=== PATIENT | female | born 1965 | race Caucasian/White ===

== ENCOUNTER 2016-06-17 11:11 | Observation (INO) | payer OTHER ==
[~2016-06-17] VITALS: Ht 162.6 cm; Wt 101.7 kg
[~2016-06-17 11:11] MED LIST: DIPH25CA5 PO; FLNIN NAE; HYDC25 PO; IBUP-1277 PO; LISI-793 PO; OXYC-643 PO; SERT-234 PO; VARE1PAK15
[2016-06-17] MEDS ORDERED: MoRPHine SULFATE 10 MG/ML CARP/VIAL IV STA (11:23)
[2016-06-17] MEDS ORDERED: ONDANSETRON INJ 2 MG/ML 2 ML VIAL IV STA (11:23)
[2016-06-17] MEDS ORDERED: SODIUM CHLORIDE 0.9% 1000ML 1,000 ML IV STA (11:23)
[2016-06-17] MEDS ORDERED: SERT25TA PO (11:52)
[2016-06-17] MEDS ORDERED: LISI-725 PO (11:52)
[2016-06-17] MEDS ORDERED: CYAN10005 PO (11:52)
[2016-06-17] MEDS ORDERED: SERT-234 PO (11:52)
[2016-06-17] MEDS ORDERED: HYDR12.56 PO (11:52)
[2016-06-17] MEDS ORDERED: FLUT0.15 NAE (11:52)
[2016-06-17] MEDS ORDERED: FOLI1TAB7 PO (11:52)
[2016-06-17] MEDS ORDERED: [UNRECOGNIZED DRUG - OTHER] OPB (11:52)
[2016-06-17] MEDS ORDERED: ERGO500037 PO (11:52)
[2016-06-17] MEDS ORDERED: CETI10TA10 PO (11:52)
[2016-06-17 11:55] LABS: BASO % 0.3 %; BASO ABS # 0.02 K/uL (0-0.2); COMPLETE YES; EOS % 3.6 %; HEMATOCRIT 44.6 % (37-47); IG% 0.3 %; LYMPH % 27.7 %; LYMPH ABS # 1.95 K/uL (1.2-3.4); MEAN CELL VOLUME 99.8 fL (80-100); MEAN CORPUSCULAR HEMOGLOBIN 34.2 pg (25-34); MEAN CORPUSCULAR HGB CONC 34.3 g/dl (32-36); MEAN PLATELET VOLUME 11.1 fL (7.4-10.4); MONO % 6.7 %; NEUT % 61.4 %; PLATELET COUNT 189 K/uL (130-400); RED BLOOD COUNT 4.47 M/uL (4.2-5.4); WHITE BLOOD COUNT 7.03 K/uL (4.8-10.8)
[2016-06-17 12:00] LABS: POINT OF CARE PRO-BNP 17 pg/ml (0-450)
[2016-06-17 12:04] LABS: PARTIAL THROMBOPLASTIN RATIO 1.2; PROTHROMBIN TIME (PATIENT) 10.6 SECONDS (9.0-12.0)
[2016-06-17 12:18] LABS: BUN/CREATININE RATIO 13.6 (10-20); CALCIUM 9.3 mg/dl (8.5-10.1); CREATININE 0.82 mg/dl (0.60-1.20); MAGNESIUM 2.2 mg/dl (1.8-2.4); POTASSIUM 3.8 mmol/L (3.5-5.1)
[2016-06-17 12:21] LABS: CKMB/CK RATIO 1.2 (0-3.0)
--- NOTE | 2016-06-17 12:31 | DIAGNOSTIC IMAGING REPORT ---
PANCREATIC ULTRASOUND CLINICAL HISTORY: Mid back pain. Nausea. Vomiting. COMPARISON STUDY: No previous studies for comparison. FINDINGS: The pancreas appears sonographically normal. The gallbladder appears sonographically normal. There is no ductal dilatation. The common bile duct measures 4 mm. There is no right-sided hydronephrosis. The liver is of slightly increased echogenicity. There is a 2.9 cm hypoechoic focus adjacent to the IVC. This is nonspecific but could represent focal fatty sparing. IMPRESSION: 1. Ultrasonographically normal pancreas and gallbladder 2. No ductal dilatation 3. Suspected hepatic steatosis 4. 29 mm hypoechoic lesion within the liver adjacent to the IVC. While this lesion may simply represent focal fatty sparing, the appearance is nonspecific Electronically signed by: Mani Dorman M.D. 06/17/2016 12:30 PM Dictated Date/Time: 06/17/2016 12:27 PM
[2016-06-17] MEDS ORDERED: OPTIRAY 320 IV PRN (12:45)
[2016-06-17 12:50] LABS: URINE APPEARANCE CLEAR (CLEAR); URINE BILIRUBIN NEG (NEG); URINE COLOR DK YELLOW; URINE NITRITE NEG (NEG); URINE SPECIFIC GRAVITY 1.019 (1.000-1.030); UROBILINOGEN NEG (NEG); ZZUR CULT IF INDIC CLEAN CATCH NO
[2016-06-17 12:53] LABS: MANUAL MICROSCOPIC REQUIRED? NO; REVIEW REQ? NO
--- NOTE | 2016-06-17 13:12 | DIAGNOSTIC IMAGING REPORT ---
CT ANGIOGRAPHY OF THE CHEST, PULMONARY EMBOLUS PROTOCOL CLINICAL HISTORY: Chest pain. Elevated d-dimer. COMPARISON STUDY: Chest radiograph February 19, 2012. TECHNIQUE: Following IV administration of 80 mL of Optiray-320, helical axial images of the chest were obtained utilizing the pulmonary embolus protocol. Maximal intensity projections and sagittal and coronal reformats were viewed on an independent 3D workstation. IV contrast was administered without complication. CT DOSE: 646.73 mGy.cm FINDINGS: No pulmonary emboli are identified. There is no evidence of aortic dissection. The size of the heart is at the upper limits of normal. There are no enlarged thoracic lymph nodes. Central airways are patent. There is no consolidation. Moderate upper lobe predominant emphysema is noted. There is no pneumothorax or pleural effusion. Bony thorax and upper abdomen are unremarkable. IMPRESSION: 1. No pulmonary emboli identified. 2. No acute intrathoracic findings. 3. Moderate upper lobe predominant emphysema. Electronically signed by: Jam Wright M.D. 06/17/2016 1:11 PM Dictated Date/Time: 06/17/2016 1:02 PM
--- NOTE | 2016-06-17 13:21 | DIAGNOSTIC IMAGING REPORT ---
CHEST 2 VIEWS ROUTINE CLINICAL HISTORY: Chest pain, nausea and vomiting. COMPARISON STUDY: Chest radiograph July or 2012. FINDINGS: Lung volumes are normal. Lungs are clear. There is no pneumothorax or pleural effusion. Cardiac size is normal. Mediastinal contours are normal. There is no evidence of pulmonary edema. IMPRESSION: No acute cardiopulmonary findings. Electronically signed by: Jam Wright M.D. 06/17/2016 1:19 PM Dictated Date/Time: 06/17/2016 1:17 PM
--- NOTE | 2016-06-17 14:02 | EMERGENCY ROOM VISIT NOTE ---
History First contact with patient: 11:13 Chief Complaint: CHEST PAIN Stated Complaint: CHEST PAINS, SHOULDER BLADES, NAUSEA, VOMITING Nursing Triage Summary: Patient reports sudden onset of left sided chest pain with radiation to back, initially started in sholder blades with associated nausea/vomiting, diaphoresis. Negative SOB. Patient does have a history daily alcohol use. Patient reports today pain mostly located epigastric lower chest area and wraps around to back. History of Present Illness The patient is a 51 year old female who presents to the Emergency Room with complaints of left-sided chest pain and pain across the upper back under the left shoulder blade. The patient states that the pain started yesterday morning when she woke up. The patient does admit that she drinks a lot of alcohol, usually one bottle of wine per day. She does admit to drinking even more alcohol on Friday night and Friday. The patient also admits to nausea vomiting and diaphoresis with her symptoms. She denies any shortness of breath. The patient currently rates the pain at a 4 out of 10. The patient denies any abdominal pain or diarrhea. The patient denies any history of any cardiac disorder except for hypertension. The patient denies any history of pancreatitis. The patient also states that she was having bilateral leg pain a few months ago and had ultrasounds of her legs which were negative for DVT. The patient is a smoker. She denies any history of clots in her legs or her lungs. She denies any recent travel. She denies any recent surgeries. Review of Systems 10 system review was performed and was negative unless stated otherwise history of present illness. Past Medical/Surgical History Medical Problems: (1) Appendectomy (2) Benign hypertension (3) Bronchitis (4) Pneumonia (5) skin problems (6) stomach problems (7) urinary problems Social History Smoking Status: Current Every Day Smoker Alcohol Use: occasionally Marital Status: Housing Status: lives with family Occupation Status: employed Current/Historical Medications Scheduled Cetirizine Hcl (Zyrtec), 10 MG PO QAM Cyanocobalamin (Vitamin B-12), 1,000 MCG PO DAILY Ergocalciferol (Vitamin D 04226 Unit), 50,000 UNIT PO 2XWK Fluticasone Propionate (Nasal) (Flonase Allergy Relief), 2 SPRAY ALOK DAILY Folic Acid (Folvite), 1 MG PO DAILY Hydrochlorothiazide (Hctz), 12.5 MG PO DAILY Lisinopril (Zestril), 20 MG PO DAILY Sertraline (Zoloft), 100 MG PO DAILY Sertraline (Zoloft), 25 MG PO DAILY Scheduled PRN Olopatadine Hydrochloride (Patanol), 2 DROPS OPB BID PRN for ALLERGIES Allergies Coded Allergies: Phenylpropanolamine (Verified Allergy, Mild, PALPITATIONS, 06/17/16) Penicillins (Verified Allergy, Unknown, UNKNOWN, 06/17/16) Sulfa Drugs (Verified Adverse Reaction, Mild, DIARRHEA, 06/17/16) Amoxicillin (Unverified Adverse Reaction, Unknown, SEVERE DIARRHEA, 06/17/16 ) Clavulanic Acid (Unverified Adverse Reaction, Unknown, SEVERE DIARRHEA, 06/17/16) Physical Exam Vital Signs Date Time Temp Pulse Resp B/P Pulse Ox O2 Delivery O2 Flow Rate FiO2 06/17/16 13:17 148/96 06/17/16 12:40 71 17 99 06/17/16 12:35 174/105 06/17/16 12:02 74 06/17/16 11:19 97 Room Air 06/17/16 11:19 95 Room Air 06/17/16 11:19 36.9 82 20 195/109 97 Room Air 06/17/16 11:18 195/109 Physical Exam GENERAL: 51-year-old white female appears in some distress secondary to her symptoms. MENTAL Status: Alert and oriented 3. The patient is tearful and anxious. MOUTH: Mucosa is moist NECK: Supple, no lymphadenopathy noted. No carotid bruits noted. LUNGS: Clear auscultation without wheezes rales or rhonchi. CARDIAC: Regular rate and rhythm without murmur. Pulses is full and equal throughout. CHEST WALL: Patient has tenderness palpation over the left lower anterior chest wall remainder chest wall is nontender. BACK: No CVA tenderness noted. ABDOMEN: Positive bowel sounds all 4 quadrants. Soft, mild tenderness palpation in the epigastric region otherwise nontender to palpation without organomegaly or masses. EXTREMITIES: No cyanosis or edema noted. Calves are nontender bilaterally. No palpable cords. Negative Homans bilaterally. Medical Decision & Procedures ER Provider Diagnostic Interpretation: CHEST 2 VIEWS ROUTINE CLINICAL HISTORY: Chest pain, nausea and vomiting. COMPARISON STUDY: Chest radiograph July. FINDINGS: Lung volumes are normal. Lungs are clear. There is no pneumothorax or pleural effusion. Cardiac size is normal. Mediastinal contours are normal. There is no evidence of pulmonary edema. IMPRESSION: No acute cardiopulmonary findings. Electronically signed by: Jam Wright M.D. 06/17/2016 1:19 PM PANCREATIC ULTRASOUND CLINICAL HISTORY: Mid back pain. Nausea. Vomiting. COMPARISON STUDY: No previous studies for comparison. FINDINGS: The pancreas appears sonographically normal. The gallbladder appears sonographically normal. There is no ductal dilatation. The common bile duct measures 4 mm. There is no right-sided hydronephrosis. The liver is of slightly increased echogenicity. There is a 2.9 cm hypoechoic focus adjacent to the IVC. This is nonspecific but could represent focal fatty sparing. IMPRESSION: 1. Ultrasonographically normal pancreas and gallbladder 2. No ductal dilatation 3. Suspected hepatic steatosis 4. 29 mm hypoechoic lesion within the liver adjacent to the IVC. While this lesion may simply represent focal fatty sparing, the appearance is nonspecific Electronically signed by: Mani Dorman M.D. 06/17/2016 12:[address] ANGIOGRAPHY OF THE CHEST, PULMONARY EMBOLUS PROTOCOL CLINICAL HISTORY: Chest pain. Elevated d-dimer. COMPARISON STUDY: Chest radiograph February 19, 2012. TECHNIQUE: Following IV administration of 80 mL of Optiray-320, helical axial images of the chest were obtained utilizing the pulmonary embolus protocol. Maximal intensity projections and sagittal and coronal reformats were viewed on an independent 3D workstation. IV contrast was administered without complication. CT DOSE: 646.73 mGy.cm FINDINGS: No pulmonary emboli are identified. There is no evidence of aortic dissection. The size of the heart is at the upper limits of normal. There are no enlarged thoracic lymph nodes. Central airways are patent. There is no consolidation. Moderate upper lobe predominant emphysema is noted. There is no pneumothorax or pleural effusion. Bony thorax and upper abdomen are unremarkable. IMPRESSION: 1. No pulmonary emboli identified. 2. No acute intrathoracic findings. 3. Moderate upper lobe predominant emphysema. Laboratory Results 06/17/16 11:15 Red Blood Count 4.47, Mean Corpuscular Volume 99.8, Mean Corpuscular Hemoglobin 34.2, Mean Corpuscular Hemoglobin Concent 34.3, Mean Platelet Volume 11.1, Neutrophils (%) (Auto) 61.4, Lymphocytes (%) (Auto) 27.7, Monocytes (%) (Auto) 6.7, Eosinophils (%) (Auto) 3.6, Basophils (%) (Auto) 0.3, Neutrophils # (Auto) 4.32, Lymphocytes # (Auto) 1.95, Monocytes # (Auto) 0.47, Eosinophils # (Auto) 0.25, Basophils # (Auto) 0.02 06/17/16 11:15 Test 06/17/16 00:00 06/17/16 11:15 06/17/16 11:36 06/17/16 13:30 Urine Color DK YELLOW Urine Appearance CLEAR (CLEAR) Urine pH 6.0 (4.5-7.5) Urine Specific [place] 1.019 (1.000-1.030) Urine Protein NEG (NEG) Urine Glucose (UA) NEG (NEG) Urine Ketones TRACE (NEG) Urine Occult Blood NEG (NEG) Urine Nitrite NEG (NEG) Urine Bilirubin NEG (NEG) Urine Urobilinogen NEG (NEG) Urine Leukocyte Esterase NEG (NEG) White Blood Count 7.03 K/uL (4.8-10.8) Red Blood Count 4.47 M/uL (4.2-5.4) Hemoglobin 15.3 g/dL (12.0-16.0) Hematocrit 44.6 % (37-47) Mean Corpuscular Volume 99.8 fL (80-100) Mean Corpuscular Hemoglobin 34.2 pg (25-34) Mean Corpuscular Hemoglobin Concent 34.3 g/dl (32-36) Platelet Count 189 K/uL (130-400) Mean Platelet Volume 11.1 fL (7.4-10.4) Neutrophils (%) (Auto) 61.4 % Lymphocytes (%) (Auto) 27.7 % Monocytes (%) (Auto) 6.7 % Eosinophils (%) (Auto) 3.6 % Basophils (%) (Auto) 0.3 % Neutrophils # (Auto) 4.32 K/uL (1.4-6.5) Lymphocytes # (Auto) 1.95 K/uL (1.2-3.4) Monocytes # (Auto) 0.47 K/uL (0.11-0.59) Eosinophils # (Auto) 0.25 K/uL (0-0.5) Basophils # (Auto) 0.02 K/uL (0-0.2) RDW Standard Deviation 47.5 fL (36.4-46.3) RDW Coefficient of Variation 13.0 % (11.5-14.5) Immature Granulocyte % (Auto) 0.3 % Immature Granulocyte # (Auto) 0.02 K/uL (0.00-0.02) Prothrombin Time 10.6 SECONDS (9.0-12.0) Prothromb Time International Ratio 1.0 (0.9-1.1) Activated Partial Thromboplast Time 31.2 SECONDS (21.0-31.0) Partial Thromboplastin Ratio 1.2 Anion Gap 7.0 mmol/L (3-11) Est Creatinine Clear Calc Drug Dose 95.5 ml/min Estimated GFR () 97.4 Estimated GFR (Non- 84.0 BUN/Creatinine Ratio 13.6 (10-20) Calcium Level 9.3 mg/dl (8.5-10.1) Magnesium Level 2.2 mg/dl (1.8-2.4) Total Bilirubin 0.8 mg/dl (0.2-1) Direct Bilirubin 0.2 mg/dl (0-0.2) Aspartate Amino Transf (AST/SGOT) 16 U/L (15-37) Alanine Aminotransferase (ALT/SGPT) 31 U/L (12-78) Alkaline Phosphatase 74 U/L (45-117) Total Creatine Kinase 65 U/L (26-192) Creatine Kinase MB 0.8 ng/ml (0.5-3.6) Creatine Kinase MB Ratio 1.2 (0-3.0) Total Protein 7.5 gm/dl (6.4-8.2) Albumin 4.2 gm/dl (3.4-5.0) Lipase 112 U/L (73-393) Bedside D-Dimer > 450 ng/mlFEU (0-450) BG-Psg-T-Type Natriuretic Peptide 17 pg/ml (0-450) Bedside Troponin I 0.000 ng/ml (0-0.045) Medications Administered Medications (Trade) Dose Ordered Sig/Irina Route Start Time Stop Time Status Last Admin Dose Admin Sodium Chloride (Nss 1000ml) 1,000 ml @ 999 mls/hr Q1H1M STAT IV 06/17/16 11:23 06/17/16 12:23 DC 06/17/16 11:39 999 MLS/HR Ondansetron HCl (Zofran Inj) 4 mg NOW STAT IV 06/17/16 11:23 06/17/16 11:27 DC 06/17/16 11:38 4 MG Morphine Sulfate (MoRPHine SULFATE INJ) 6 mg NOW STAT IV 06/17/16 11:23 06/17/16 11:27 DC 06/17/16 11:39 6 MG ECG Indication: chest pain Rhythm: normal sinus Findings: no acute ischemic change Change: no significant change ED Course The patient was evaluated. The patient's EMR was reviewed as well as her medication list. IV access was obtained. The patient was placed on a monitor and continuous pulse ox. The patient was given morphine 6 mg IV and Zofran 4 mg IV push. CBC and differential, renal profile, LFTs and lipase levels were ordered. Coags were ordered, CK-MB, [id number] d-dimer and troponin were ordered. EKG was ordered and interpreted by myself without any acute findings. Chest x-ray was ordered and interpreted by the radiologist and myself as above. Ultrasound of the pancreas was ordered and interpreted by the radiologist as above. The patient's d-dimer was elevated greater than [address] of the chest for PE was ordered. CT of the chest was negative for PE The patient's white count was normal. CBC and renal profile was unremarkable. Patient's lipase was normal. Troponin was 02. CK-MB was normal. The patient was informed of all findings. Since we did not have any specific finding for her symptoms I felt the patient should be admitted for cardiac rule out. I discussed the patient's case with Dr. Dwyer he was in agreement with treatment plan. Dr. Torre was consulted for admission. Medical Decision Differential diagnosis include acute NM, pulmonary embolus, acute gastritis, peptic ulcer disease, acute pancreatitis, angina Impression Primary Impression: Left sided chest pain Additional Impressions: Nausea and vomiting Alcohol abuse Hypertension Departure Information Dispostion Being Evaluated By Hospitalist Condition GOOD Referrals Vandana Cedeño C.R.N.P. (PCP) Patient Instructions My [facility] Problem Qualifiers
[2016-06-17] MEDS ORDERED: LORAZEPAM 1 MG TAB PO PRN ×2 (14:30)
[2016-06-17] MEDS ORDERED: ALUMINUM/MAGNESIUM/SIMETH (MAALOX MAX) 30 ML UDC PO PRN (14:30)
[2016-06-17] MEDS ORDERED: HydrALAZINE HCL 20 MG/ML VIAL IV. PRN (14:30)
[2016-06-17] MEDS ORDERED: MAGNESIUM HYDROXIDE SUSP 30 ML UDC PO PRN (14:30)
[2016-06-17] MEDS ORDERED: POLYETHYLENE (MIRALAX) 17 GM PACK PO PRN (14:30)
[2016-06-17] MEDS ORDERED: GABAPENTIN 600 MG TAB PO SCH (14:30)
[2016-06-17] MEDS ORDERED: NITROGLYCERIN 0.4 MG SL PER TAB CHARGE SL PRN (14:30)
[2016-06-17] MEDS ORDERED: CHLORDIAZEPOXIDE 25 MG CAP PO SCH (14:30)
[2016-06-17] MEDS ORDERED: ONDANSETRON INJ 2 MG/ML 2 ML VIAL IV PRN (14:30)
[2016-06-17] MEDS ORDERED: SODIUM CHLORIDE 0.9% 1000ML 1,000 ML IV SCH (14:30)
--- NOTE | 2016-06-17 14:54 | History and Physical ---
History & Physical Date & Time of Service: June 17, 2016 at 14:35 Chief Complaint: Chest Pains, Shoulder Blades, Nausea, Vomiting Primary Care Physician: Vandana Cedeño C.R.N.P. History of Present Illness Source: family, clinic records, hospital records Patient is a pleasant 51 y/o female, with PMHx of HTN, anxiety, and tobacco/ alcohol abuse, who presented to the ED because of pain between shoulder blades, radiating to left chest x1 day. On 06/16, patient started to notice discomfort between her shoulder blades. Pain then radiated to left anterior chest. She rated the discomfort a 7/10. Associated symptoms of nausea, vomiting, and diaphoresis. She vomited x1 after eating dinner last evening. She denies any alleviating/aggravating factors. She denies any recent injuries. Currently, she states pain is well controlled; she was giving Morphine 6 mg IV x1 in the ED. Patient admits to drinking a bottle of wine daily. Her last drink was last evening with dinner. She currently denies anxiousness/tremors. She admits to smoking 1 pack of cigarettes per day. She was recently seen by her PCP about 2 weeks ago for bilateral calf discomfort. Bilateral venous US negative for DVT. Patient denies history of DVT/PE or TIA/stroke. She denies any cardiac history. Patient denies any fever, chills, sweats, lightheadedness, dizziness, vision changes, palpitations, edema, SOB, wheezing, cough, abdominal pain, diarrhea, urinary symptoms, melena, numbness/tingling, weakness, muscle/joint pain, anxiety/depression, active bleeding, or new skin discoloration/changes. Past Medical/Surgical History Medical Problems: 1. HTN 2. Anxiety 3. Allergies 4. Tobacco abuse 5. Alcohol abuse Surgical hx: 1. Appendectomy 2. Hysterectomy Family History Mother and father- HTN Grandfather- heart disease Social History Smoking Status: Current Every Day Smoker (1 pack per day ) Alcohol Use: heavy (1 bottle of wine per day ) Marital Status: Housing status: lives with family Occupational Status: employed Immunizations History of Influenza Vaccine: No History of Tetanus Vaccine?: Unknown History of Pneumococcal: No History of Hepatitis B Vaccine: No Multi-Drug Resistant Organisms History of MDRO: No Allergies Coded Allergies: Phenylpropanolamine (Verified Allergy, Mild, PALPITATIONS, 06/17/16) Penicillins (Verified Allergy, Unknown, UNKNOWN, 06/17/16) Sulfa Drugs (Verified Adverse Reaction, Mild, DIARRHEA, 06/17/16) Amoxicillin (Unverified Adverse Reaction, Unknown, SEVERE DIARRHEA, 06/17/16 ) Clavulanic Acid (Unverified Adverse Reaction, Unknown, SEVERE DIARRHEA, 06/17/16) Home Medications Scheduled Cetirizine Hcl (Zyrtec), 10 MG PO QAM Cyanocobalamin (Vitamin B-12), 1,000 MCG PO DAILY Ergocalciferol (Vitamin D 70114 Unit), 50,000 UNIT PO 2XWK Fluticasone Propionate (Nasal) (Flonase Allergy Relief), 2 SPRAY ALOK DAILY Folic Acid (Folvite), 1 MG PO DAILY Hydrochlorothiazide (Hctz), 12.5 MG PO DAILY Lisinopril (Zestril), 20 MG PO DAILY Sertraline (Zoloft), 100 MG PO DAILY Sertraline (Zoloft), 25 MG PO DAILY Scheduled PRN Olopatadine Hydrochloride (Patanol), 2 DROPS OPB BID PRN for ALLERGIES Physical Exam Vital Signs Date Time Temp Pulse Resp B/P Pulse Ox O2 Delivery O2 Flow Rate FiO2 06/17/16 13:17 148/96 06/17/16 12:40 71 17 99 06/17/16 12:35 174/105 06/17/16 12:02 74 06/17/16 11:19 97 Room Air 06/17/16 11:19 95 Room Air 06/17/16 11:19 36.9 82 20 195/109 97 Room Air 06/17/16 11:18 195/109 General Appearance: no apparent distress Head: normocephalic, atraumatic Eyes: normal inspection, PERRL ENT: hearing grossly normal Neck: supple Respiratory/Chest: lungs clear, no respiratory distress, no accessory muscle use Cardiovascular: regular rate, rhythm Abdomen/GI: normal bowel sounds, non tender, soft Back: + pertinent finding (ttp of left shoulder musculoskeletal region ) Extremities/Musculoskelatal: no calf tenderness, no pedal edema Neurologic/Psych: alert, normal mood/affect, oriented x 3 Skin: normal color, warm/dry, no rash Diagnostics Laboratory Results Results Past 24 Hours Test 06/17/16 00:00 06/17/16 11:15 06/17/16 11:36 06/17/16 13:30 Range/Units Urine Color DK YELLOW Urine Appearance CLEAR CLEAR Urine pH 6.0 4.5-7.5 Urine Specific [place] 1.019 1.000-1.030 Urine Protein NEG NEG Urine Glucose (UA) NEG NEG Urine Ketones TRACE NEG Urine Occult Blood NEG NEG Urine Nitrite NEG NEG Urine Bilirubin NEG NEG Urine Urobilinogen NEG NEG Urine Leukocyte Esterase NEG NEG White Blood Count 7.03 4.8-10.8 K/uL Red Blood Count 4.47 4.2-5.4 M/uL Hemoglobin 15.3 12.0-16.0 g/dL Hematocrit 44.6 37-47 % Mean Corpuscular Volume 99.8 80-100 fL Mean Corpuscular Hemoglobin 34.2 25-34 pg Mean Corpuscular Hemoglobin Concent 34.3 32-36 g/dl Platelet Count 189 130-400 K/uL Mean Platelet Volume 11.1 7.4-10.4 fL Neutrophils (%) (Auto) 61.4 % Lymphocytes (%) (Auto) 27.7 % Monocytes (%) (Auto) 6.7 % Eosinophils (%) (Auto) 3.6 % Basophils (%) (Auto) 0.3 % Neutrophils # (Auto) 4.32 1.4-6.5 K/uL Lymphocytes # (Auto) 1.95 1.2-3.4 K/uL Monocytes # (Auto) 0.47 0.11-0.59 K/uL Eosinophils # (Auto) 0.25 0-0.5 K/uL Basophils # (Auto) 0.02 0-0.2 K/uL RDW Standard Deviation 47.5 36.4-46.3 fL RDW Coefficient of Variation 13.0 11.5-14.5 % Immature Granulocyte % (Auto) 0.3 % Immature Granulocyte # (Auto) 0.02 0.00-0.02 K/uL Prothrombin Time 10.6 9.0-12.0 SECONDS Prothromb Time International Ratio 1.0 0.9-1.1 Activated Partial Thromboplast Time 31.2 21.0-31.0 SECONDS Partial Thromboplastin Ratio 1.2 Sodium Level 136 136-145 mmol/L Potassium Level 3.8 3.5-5.1 mmol/L Chloride Level 101 98-107 mmol/L Carbon Dioxide Level 28 21-32 mmol/L Anion Gap 7.0 3-11 mmol/L Blood Urea Nitrogen 11 7-18 mg/dl Creatinine 0.82 0.60-1.20 mg/dl Est Creatinine Clear Calc Drug Dose 95.5 ml/min Estimated GFR () 97.4 Estimated GFR (Non- 84.0 BUN/Creatinine Ratio 13.6 10-20 Random Glucose 101 70-99 mg/dl Calcium Level 9.3 8.5-10.1 mg/dl Magnesium Level 2.2 1.8-2.4 mg/dl Total Bilirubin 0.8 0.2-1 mg/dl Direct Bilirubin 0.2 0-0.2 mg/dl Aspartate Amino Transf (AST/SGOT) 16 15-37 U/L Alanine Aminotransferase (ALT/SGPT) 31 12-78 U/L Alkaline Phosphatase 74 45-117 U/L Total Creatine Kinase 65 26-192 U/L Creatine Kinase MB 0.8 0.5-3.6 ng/ml Creatine Kinase MB Ratio 1.2 0-3.0 Total Protein 7.5 6.4-8.2 gm/dl Albumin 4.2 3.4-5.0 gm/dl Lipase 112 73-393 U/L Bedside D-Dimer > 450 0-450 ng/mlFEU Bedside Troponin I 0.000 0.000 0-0.045 ng/ml YO-Avu-P-Type Natriuretic Peptide 17 0-450 pg/ml Diagnostic Radiology PANCREATIC ULTRASOUND CLINICAL HISTORY: Mid back pain. Nausea. Vomiting. COMPARISON STUDY: No previous studies for comparison. FINDINGS: The pancreas appears sonographically normal. The gallbladder appears sonographically normal. There is no ductal dilatation. The common bile duct measures 4 mm. There is no right-sided hydronephrosis. The liver is of slightly increased echogenicity. There is a 2.9 cm hypoechoic focus adjacent to the IVC. This is nonspecific but could represent focal fatty sparing. IMPRESSION: 1. Ultrasonographically normal pancreas and gallbladder 2. No ductal dilatation 3. Suspected hepatic steatosis 4. 29 mm hypoechoic lesion within the liver adjacent to the IVC. While this lesion may simply represent focal fatty sparing, the appearance is nonspecific Electronically signed by: Mani Dorman M.D. 06/17/2016 12:30 PM Dictated Date/Time: 06/17/2016 12:27 PM The status of this report is Signed. Draft = Not yet reviewed or approved by Radiologist. Signed = Reviewed and approved by Radiologist. CHEST 2 VIEWS ROUTINE CLINICAL HISTORY: Chest pain, nausea and vomiting. COMPARISON STUDY: Chest radiograph July. FINDINGS: Lung volumes are normal. Lungs are clear. There is no pneumothorax or pleural effusion. Cardiac size is normal. Mediastinal contours are normal. There is no evidence of pulmonary edema. IMPRESSION: No acute cardiopulmonary findings. Electronically signed by: Jam Wright M.D. 06/17/2016 1:19 PM Dictated Date/Time: 06/17/2016 1:17 PM The status of this report is Signed. Draft = Not yet reviewed or approved by Radiologist. Signed = Reviewed and approved by Radiologist. CT ANGIOGRAPHY OF THE CHEST, PULMONARY EMBOLUS PROTOCOL CLINICAL HISTORY: Chest pain. Elevated d-dimer. COMPARISON STUDY: Chest radiograph February 19, 2012. TECHNIQUE: Following IV administration of 80 mL of Optiray-320, helical axial images of the chest were obtained utilizing the pulmonary embolus protocol. Maximal intensity projections and sagittal and coronal reformats were viewed on an independent 3D workstation. IV contrast was administered without complication. CT DOSE: 646.73 mGy.cm FINDINGS: No pulmonary emboli are identified. There is no evidence of aortic dissection. The size of the heart is at the upper limits of normal. There are no enlarged thoracic lymph nodes. Central airways are patent. There is no consolidation. Moderate upper lobe predominant emphysema is noted. There is no pneumothorax or pleural effusion. Bony thorax and upper abdomen are unremarkable. IMPRESSION: 1. No pulmonary emboli identified. 2. No acute intrathoracic findings. 3. Moderate upper lobe predominant emphysema. Electronically signed by: Jam Wright M.D. 06/17/2016 1:11 PM Dictated Date/Time: 06/17/2016 1:02 PM The status of this report is Signed. Draft = Not yet reviewed or approved by Radiologist. Signed = Reviewed and approved by Radiologist STEVEN DILLON VARGAS ID:[id number] 17-JUN-2016 11:16:56 [facility] Normal sinus rhythm Left anterior fascicular block Abnormal ECG When compared with ECG of 17-APR-2012 10:48, Left anterior fascicular block is now Present Confirmed by EBER MOFFETT ([id number]) on 06/17/2016 1:32:44 PM 25mm/s 10mm/mV 150Hz 8.0 SP2 12SL 241 LAURA: 9 Referred by: Referred Self Confirmed By: EBER Cole. rate 81 BPM NM interval 158 ms QRS duration 86 ms QT/QTc 366/425 ms P-R-T axes 58 -60 46 -DEC-1964 (51 yr) Female 64in 220lb Room: Loc:15 Dice Spotter:Julian Sullivan ind: Impression Assessment and Plan 51 y/o female, with PMHx of HTN, anxiety, and tobacco/alcohol abuse, who presented to the ED because of pain between shoulder blades, radiating to left chest x1 day Left-sided CP, likely secondary to musculoskeletal issue vs. cardiac: - Admit to tele for cardiac monitoring - Trend cardiac enzymes- initial trop negative - Repeat EKG tomorrow AM and PRN w/ CP - NPO after midnight for stress ECHO tomorrow AM - IV Toradol and Flexeril 5 mg BID for pain management - IV NSS x1 bag - Elevated d-dimer- chest CTA negative for PE HTN: - Continue Lisinopril 20 mg daily and HCTZ 12.5 mg daily - IV 10 mg Hydralazine PRN Anxiety: Continue Zoloft daily Alcohol abuse- 1 bottle of wine per day: Alcohol protocol Tobacco abuse- 1 pack per day: - Nicotine patch - Smoking cessation counselling GI Prophylaxis: Protonix daily, Maalox PRN, IV Zofran PRN, Colace and/or Milk of Mag PRN DVT prophylaxis: Lovenox 40 mg SQ q24 hrs, EVANS and SCDs Code Status: LEVEL I, FULL Level of Care Telemetry Resuscitation Status FULL RESUSCITATION VTE Prophylaxis VTE Risk Assessment Done? Y/N: Yes Risk Level: Moderate Given or contraindicated: Enoxaparin (Lovenox)SQ, T.E.D. Stockings, SCD's
[2016-06-17] MEDS ORDERED: THIAMINE HCL 100 MG TAB PO STA (15:05)
[2016-06-17 16:00] VITALS: O2SAT 97; Ht 162.6 cm; Wt 101.7 kg
[2016-06-17] MEDS ORDERED: IV FLUIDS COMPLETED PRN (16:00)
[2016-06-17 16:43] VITALS: BP 154/96; PULSE 76; TEMP 36.8; O2SAT 96
[2016-06-17] MEDS: KETOROLAC TROMETHAMINE 30 MG/ML VIAL IV PRN ×2 (17:32→23:26)
[2016-06-17] MEDS: NICOTINE 14 MG/24 HR TDSY TD SCH (17:37)
[2016-06-17 17:57] LABS: URINE APPEARANCE CLEAR (CLEAR); URINE BILIRUBIN NEG (NEG); URINE COLOR YELLOW; URINE NITRITE NEG (NEG); URINE SPECIFIC GRAVITY 1.025 (1.000-1.030); UROBILINOGEN NEG (NEG)
[2016-06-17 17:59] LABS: MANUAL MICROSCOPIC REQUIRED? NO; REVIEW REQ? NO
[2016-06-17] MEDS ORDERED: GABAPENTIN 1200MG LOADING DOSE PO SCH (18:00)
[2016-06-17 19:02] VITALS: BP 150/94; PULSE 62; TEMP 36.9; O2SAT 96
[2016-06-17] MEDS ORDERED: ENOXAPARIN 40 MG/0.4 ML SYR SC SCH (21:00)
[2016-06-17] MEDS: CYCLOBENZAPRINE HCL 5 MG TAB PO SCH (21:21)
[2016-06-17] MEDS: GABAPENTIN 600MG Q6H DOSE PO SCH (23:25)
[2016-06-17 23:50] VITALS: BP 125/84; PULSE 67; TEMP 36.6; O2SAT 96
[2016-06-18] VITALS (7 sets, daily range): BP systolic 112–158; BP diastolic 82–95; PULSE 75–83; TEMP 36.5–37.2; O2SAT 95–97
[2016-06-18 06:29] LABS: BLOOD UREA NITROGEN 13 mg/dl (7-18); BUN/CREATININE RATIO 18.7 (10-20); CALCIUM 8.7 mg/dl (8.5-10.1); CARBON DIOXIDE 29 mmol/L (21-32); CHLORIDE 107 mmol/L (98-107); GLUCOSE 92 mg/dl (70-99); POTASSIUM 4.2 mmol/L (3.5-5.1); SODIUM 140 mmol/L (136-145)
[2016-06-18] MEDS: GABAPENTIN 600MG Q6H DOSE PO SCH (07:38)
[2016-06-18] MEDS ORDERED: HYDROCHLOROTHIAZIDE 25 MG TAB PO SCH (09:00)
[2016-06-18] MEDS ORDERED: SERTRALINE HCL 50 MG TAB PO SCH ×2 (09:00→21:00)
[2016-06-18] MEDS ORDERED: PANTOprazole SOD 40 MG TAB PO SCH (09:00)
[2016-06-18] MEDS ORDERED: LISINOPRIL 20 MG TAB PO SCH (09:00)
[2016-06-18] MEDS ORDERED: CETIRIZINE HCL 10 MG TAB PO SCH (09:00)
[2016-06-18] MEDS ORDERED: SERTRALINE HCL 100 MG TAB PO SCH ×2 (09:00→21:00)
[2016-06-18] MEDS ORDERED: CYANOCOBALAMIN 500 MCG TAB (VIT B-12) PO SCH (09:00)
[2016-06-18] MEDS ORDERED: THIAMINE HCL 100 MG TAB PO SCH (09:00)
[2016-06-18] MEDS ORDERED: FLUTICASONE PROPIONATE NA SPR 16 GM BTL NAE SCH (09:00)
[2016-06-18] MEDS: CYCLOBENZAPRINE HCL 5 MG TAB PO SCH (10:30)
[2016-06-18] MEDS: KETOROLAC TROMETHAMINE 30 MG/ML VIAL IV PRN (10:50)
--- NOTE | 2016-06-18 11:35 | EXERCISE STRESS ECHO ---
*NOTICE TO RECEIVING LIBERTARIAN AGENCY This information is strictly Confidential and protected under [place] law. [place] law prohibits you from making any further disclosure of this information unless further disclosure is expressly permitted by the written consent of the person to whom it pertains or is authorized by law. A general authorization for the release of medical or other information is not sufficient for this purpose. Hospital accepts no responsibility if the information is made available to any other person, INCLUDING THE PATIENT. Interpretation Summary * Name: DILLON VARGAS Study Date: 06/18/2016 08:07 AM BP: 133/80 mmHg * Patient Location: .MED\S\N282\S\2 HR: 79 * : 1965 (M/d/yyyy) Gender: Female Height: 64 in * Age: 51 yrs Ethnicity: [place] Weight: 220 lb * Ordering Physician: Mago Whtit * Referring Physician: Self, Referred * Performed By: Tyler Soliz RCS * * Reason For Study: Chest Pain * BSA: 2.0 m2 * -- Conclusions -- * Left ventricular systolic function is normal. * Grade I diastolic dysfunction, (abnormal relaxation pattern). * The right ventricular systolic function is normal as assessed by tricuspid annular plane systolic excursion (TAPSE) (normal >1.5 cm). * Submaximal (81%) exercise echocardiogram with index chest pain but no objective evidence of inducible ischemia. Procedure Details * ECHOEX, CPT #[id number] * ECHO COLOR FLOW, CPT #[id number] * ECHO DOPPLER, CPT #[id number] Left Ventricular Findings with Stress * Submaximal (81%) exercise echocardiogram with index chest pain but no objective evidence of inducible ischemia. Left Ventricle * The left ventricle is normal in size. * There is normal left ventricular wall thickness. * Left ventricular systolic function is normal. * Ejection Fraction = 60-65%. * Grade I diastolic dysfunction, (abnormal relaxation pattern). * The left ventricular wall motion is normal. Right Ventricle * The right ventricle is grossly normal size. * The right ventricular systolic function is normal as assessed by tricuspid annular plane systolic excursion (TAPSE) (normal >1.5 cm). Atria * The left atrial size is normal. * Right atrial size is normal. Mitral Valve * The mitral valve is grossly normal. * There is no mitral regurgitation noted. Tricuspid Valve * The tricuspid valve is not well visualized, but is grossly normal. Aortic Valve * The aortic valve is normal in structure and function. * No hemodynamically significant valvular aortic stenosis. * There is no significant aortic regurgitation. Great Vessels * The aortic root is normal size. Pericardium * There is no pericardial effusion. Stress Parameters * Normal baseline electrocardiogram. * Stress ECG: No ST changes. No arrhythmias. * The stress portion of this study was personally supervised by the undersigned interpreting physician. * Rest heart rate was '79' BPM. * Rest blood pressure was '133/80' * Maximum heart rate achieved was 139 bpm. * Maximum heart rate was 81 % of maximum age-predicted heart rate. * Maximum blood pressure was '155/85' * Total exercise time was '7:17' * Maximum exercise MET level achieved was '9.0' METS * Maximum treadmill speed was '3.4' miles per hour. * Maximum treadmill elevation was '14'% grade. * Exercise was terminated due to 'FATIGUE' * Normal blood pressure response to exercise. Left Ventricular Findings with Stress * Normal baseline EKG without ischemic changes during exercise. Normal baseline echocardiogram with normal augmentation and no inducible wall motion abnormalities Patient did have her index chest pain at peak exertion. Normal BP response. Kohli treadmill score: 3 (moderate risk) MMode 2D Measurements and Calculations IVSd 1.0 cm IVSs 1.3 cm LVIDd 4.3 cm LVIDs 2.9 cm LVPWd 1.0 cm LVPWs 1.3 cm IVS/LVPW 0.99 FS 32.1 % EDV(Teich) 84.4 ml ESV(Teich) 33.3 ml EF(Teich) 60.5 % EDV(cubed) 81.1 ml ESV(cubed) 25.4 ml EF(cubed) 68.7 % % IVS thick 21.4 % % LVPW thick 24.9 % LV mass(C)d 152.6 grams LV mass(C)dI 74.9 grams/m\S\2 LV mass(C)s 118.4 grams LV mass(C)sI 58.1 grams/m\S\2 CO(Teich) 4.0 l/min CI(Teich) 2.0 l/min/m\S\2 SV(Teich) 51.1 ml SI(Teich) 25.1 ml/m\S\2 CO(cubed) 4.3 l/min CI(cubed) 2.1 l/min/m\S\2 SV(cubed) 55.7 ml SI(cubed) 27.3 ml/m\S\2 Ao root diam 3.3 cm Ao root area 8.6 cm\S\2 ACS 1.5 cm LA dimension 3.1 cm LA/Ao 0.95 LVAd ap4 24.9 cm\S\2 LVLd ap4 7.7 cm EDV(MOD-sp4) 69.0 ml LVAs ap4 12.0 cm\S\2 LVLs ap4 6.1 cm ESV(MOD-sp4) 21.0 ml EF(MOD-sp4) 69.6 % LVAd ap2 30.0 cm\S\2 LVLd ap2 8.1 cm EDV(MOD-sp2) 94.0 ml LVAs ap2 14.9 cm\S\2 LVLs ap2 6.3 cm ESV(MOD-sp2) 29.0 ml EF(MOD-sp2) 69.1 % CO(MOD-sp4) 3.7 l/min CI(MOD-sp4) 1.8 l/min/m\S\2 SV(MOD-sp4) 48.0 ml SI(MOD-sp4) 23.6 ml/m\S\2 CO(MOD-sp2) 5.1 l/min CI(MOD-sp2) 2.5 l/min/m\S\2 SV(MOD-sp2) 65.0 ml SI(MOD-sp2) 31.9 ml/m\S\2 Doppler Measurements and Calculations MV E max renny 71.0 cm/sec MV A max renny 81.4 cm/sec MV E/A 0.87 MV P1/2t max renny 79.9 cm/sec MV P1/2t 75.3 msec MVA(P1/2t) 2.9 cm\S\2 MV dec slope 310.9 cm/sec\S\2 MV dec time 0.28 sec Ao V2 max 139.0 cm/sec Ao max PG 7.7 mmHg Ao max PG (full) 3.7 mmHg LV V1 max PG 4.0 mmHg LV V1 max 100.2 cm/sec PA V2 max 112.1 cm/sec PA max PG 5.0 mmHg
[2016-06-18] MEDS ORDERED: GABAPENTIN 600MG Q8H DOSE PO SCH (14:00)
[2016-06-18] MEDS: NICOTINE 14 MG/24 HR TDSY TD SCH (14:02)
[2016-06-18] MEDS ORDERED: NURSING DECISION MEDICATION ORDER SCH (14:15)
--- NOTE | 2016-06-18 18:45 | Discharge Instructions ---
Discharge Instructions Date of Service June 18, 2016. Admission Reason for Admission: Left Sided Chest Pain Discharge Discharge Diagnosis / Problem: Left sided chest pain Discharge Goals Goal(s): Decrease discomfort, Improve function Activity Recommendations Activity Limitations: resume your previous activity . Instructions / Follow-Up Instructions / Follow-Up You were admitted with pain in between your shoulder blades and radiating to your left side of chest. You were evaluated for chest pain and found to have no blood clots in the lungs on a Chest CT scan. Your EKG and heart enzymes were unremarkable. You were also monitored for any potential withdrawal from alcohol. It is likely your symptoms were from reflux and/or very elevated blood pressure. Reflux: - Use Pepcid Twice daily x 1 week. Please seek referral to a GI specialist if your symptoms persist. Quitting drinking and smoking as well as weight loss can help reduce symptoms of acid reflux and prevent ulcers in the stomach from forming. Hypertension: - Continue Lisinopril 20 mg daily and HCTZ 12.5 mg daily Anxiety: Continue Zoloft daily. Please seek a referral for counseling through your PCP. Alcohol use: - watch for any withdrawal symptoms like restlessness, anxiety, palpitations, sweating , tremors - you may use Ativan 0.5 mg every 6 hours as needed for any withdrawal symptoms - Recommend AA meetings Tobacco use: - You may try using a Nicoderm patch which is available over the counter Please follow up with Your PCP in about a week Current Hospital Diet Patient's current hospital diet: AHA Diet (Heart Healthy) Discharge Diet Recommended Diet: Regular Diet Procedures Procedures Performed: Stress ECHOCARDIOGRAM Pending Studies Studies pending at discharge: no Medical Emergencies . Who to Call and When: Medical Emergencies: If at any time you feel your situation is an emergency, please call 911 immediately. . Non-Emergent Contact Non-Emergency issues call your: Primary Care Provider . . "Provider Documentation" section prepared by Anabelle Rios. . VTE Core Measure Inpt VTE Proph given/why not?: Enoxaparin (Lovenox)Benita THOMPSON, SCD's Resident Tracking Resident Involvement: Resident Care Provided Care Provided: Adult [facility]
[2016-06-18] MEDS ORDERED: LORA-741 PO (18:50)
--- NOTE | 2016-06-18 18:50 | Discharge Summary ---
Discharge Summary Date of Service June 18, 2016. (Anabelle Rios MD) Discharge Summary Admission Date: June 17, 2016 at 14:33 Discharge Date: June 18, 2016 Discharge Disposition: Home Principal Diagnosis: precordial chest pain Problems/Secondary Diagnoses: Alcohol use Immunizations: Have You Had Influenza Vaccine: No History of Tetanus Vaccine?: Unknown History of Pneumococcal: No History of Hepatitis B Vaccine: No (Anabelle Rios MD) Problems/Secondary Diagnoses: Current smoker Hepatic steatosis Hypoechoic lesion adjacent to IVC in liver-nonspecific finding GERD Chronic diastolic CHF Procedures: Pancreatic US: IMPRESSION: 1. Ultrasonographically normal pancreas and gallbladder 2. No ductal dilatation 3. Suspected hepatic steatosis 4. 29 mm hypoechoic lesion within the liver adjacent to the IVC. While this lesion may simply represent focal fatty sparing, the appearance is nonspecific CHEST 2 VIEWS ROUTINE CLINICAL HISTORY: Chest pain, nausea and vomiting. COMPARISON STUDY: Chest radiograph July or 2012. FINDINGS: Lung volumes are normal. Lungs are clear. There is no pneumothorax or pleural effusion. Cardiac size is normal. Mediastinal contours are normal. There is no evidence of pulmonary edema. IMPRESSION: No acute cardiopulmonary findings. CTA Chest: IMPRESSION: 1. No pulmonary emboli identified. 2. No acute intrathoracic findings. 3. Moderate upper lobe predominant emphysema. Resting and Stress ECHO: * Left ventricular systolic function is normal. * Grade I diastolic dysfunction, (abnormal relaxation pattern). * The right ventricular systolic function is normal as assessed by tricuspid annular plane systolic excursion (TAPSE) (normal >1.5 cm). * Submaximal (81%) exercise echocardiogram with index chest pain but no objective evidence of inducible ischemia. Consultations: None (Jumana Cerda MD) Medication Reconciliation New Medications: Lorazepam (Ativan) 0.5 Mg Tab 0.5 MG PO Q6H, #20 TAB Continued Medications: Cetirizine Hcl (Zyrtec) 10 Mg Tab 10 MG PO QAM, TAB Cyanocobalamin (Vitamin B-12) 1,000 Mcg Tab 1000 MCG PO DAILY, TAB Ergocalciferol (Vitamin D 12107 Unit) 50,000 Unit Cap 75017 UNIT PO 2XWK, CAP Fluticasone Propionate (Nasal) (Flonase Allergy Relief) 50 Mcg/Act Spr 2 SPRAY ALOK DAILY Folic Acid (Folvite) 1 Mg Tab 1 MG PO DAILY, TAB Hydrochlorothiazide (Hctz) 12.5 Mg Cap 12.5 MG PO DAILY, TAB Lisinopril (Zestril) 20 Mg Tab 20 MG PO DAILY, TAB Olopatadine Hydrochloride (Patanol) 75 Drops/5 Ml Soln 2 DROPS OPB BID PRN for ALLERGIES, #5 ML 3 Refills Sertraline (Zoloft) 100 Mg Tab 100 MG PO DAILY, TAB TAKE IN ADDITION TO 25 MG TAB. TOTAL DOSE 125MG Sertraline (Zoloft) 25 Mg Tab 25 MG PO DAILY, TAB TAKE IN ADDITION TO 100MG TAB. TOTAL DOSE OF 125MG Discharge Exam Doing better. Denied any more chest pain, shortness of breath, palpitations. Denied any restlessness and anxiety, palpitations, tremors Review of Systems: Constitutional: No chills, No fever Eyes: No worsening of vision ENT: No hearing loss Respiratory: No cough, No sputum Cardiovascular: No chest pain Abdomen: No nausea, No pain Musculoskeletal: No joint pain Genitourinary - Female: No dysuria, No urinary frequency Neurologic: No memory loss Psychiatric: + anxiety (chronic), No depression symptoms Hematologic / Lymphatic: No abnormal bleeding/bruising Physical Exam: General Appearance: WD/WN, no apparent distress Eyes: normal inspection ENT: normal ENT inspection, hearing grossly normal Neck: supple (we will) Respiratory/Chest: chest non-tender, lungs clear, normal breath sounds, no respiratory distress, no accessory muscle use Cardiovascular: regular rate, rhythm Abdomen / GI: normal bowel sounds, non tender, soft Extremities: normal inspection, no pedal edema Neurologic/Psychiatric: alert, normal mood/affect, oriented x 3 Skin: normal color (Anabelle Rios MD) Hospital Course Patient is a pleasant 51 y/o female, with PMHx of HTN, anxiety, and tobacco/ alcohol abuse, who presented to the ED because of pain between shoulder blades, radiating to left chest x1 day. On 06/16, patient started to notice discomfort between her shoulder blades. Pain then radiated to left anterior chest. She rated the discomfort a 7/10. Associated symptoms of nausea, vomiting, and diaphoresis. She vomited x1 after eating dinner last evening. She denies any alleviating/aggravating factors. She denies any recent injuries. Currently, she states pain is well controlled; she was giving Morphine 6 mg IV x1 in the ED. Patient admits to drinking a bottle of wine daily. Her last drink was last evening with dinner. She currently denies anxiousness/tremors. She admits to smoking 1 pack of cigarettes per day. She was recently seen by her PCP about 2 weeks ago for bilateral calf discomfort. Bilateral venous US negative for DVT. Patient denies history of DVT/PE or TIA/stroke. She denies any cardiac history. Patient denies any fever, chills, sweats, lightheadedness, dizziness, vision changes, palpitations, edema, SOB, wheezing, cough, abdominal pain, diarrhea, urinary symptoms, melena, numbness/tingling, weakness, muscle/joint pain, anxiety/depression, active bleeding, or new skin discoloration/changes. Left-sided CP, likely secondary to reflux -She was admitted to telemetry for cardiac monitoring. Her initial troponins were negative and EKG was unremarkable. Due to concerns of an elevated d-dimer at chest CTA was performed which was negative for PE . - Troponins 3 negative - She underwent a stress echocardiogram the following morning * Submaximal (81%) exercise echocardiogram with index chest pain but no objective evidence of inducible ischemia. Her chest pain could be likely secondary to a reflux and she was recommended to continue to take her Pepcid twice daily. Recommended to follow-up with GI if symptoms persist HTN: - Continue Lisinopril 20 mg daily and HCTZ 12.5 mg daily Anxiety: Continue Zoloft daily Alcohol abuse : she stated that she was drinking about a bottle of wine per day or more to deal with stresses in life. On admission she was started on alcohol withdrawal protocol with gabapentin. By afternoon she stated that she felt good but developed some swelling of her right upper lip (questionable sensitivity to gabapentin) gabapentin was stopped Discussed at length about alcohol cessation. She she seemed motivated to quit drinking. Was discharged with Ativan to be used as needed for any withdrawal symptoms and counseled about AA meetings Tobacco abuse- 1 pack per day: Motivated to quit But wants to first deal with quitting alcohol. Recommended to try nicotine patch which she can get [id number] and follow up with her primary care provider for further help Follow-up with PCP in about a week Total Time Spent: Less than 30 minutes This includes examination of the patient, discharge planning, medication reconciliation, and communication with other providers. (Anabelle Rios MD) Discharge Instructions Please refer to the electronic Patient Visit Report (Discharge Instructions) for additional information. (Anabelle Rios MD) Follow-Up Follow-up with PCP in a week (Anabelle Rios MD) Additional Copies To Vandana Cedeño C.R.N.P. Resident Tracking Resident Involvement: Resident Care Provided Care Provided: [facility] (Anabelle Rios MD) Reviewed: Pt Seen/Exam by Me (Jumana Cerda MD) History Resident Physician Supervision Note: I interviewed and examined the patient. Discussed with Dr. Rios and agree with findings and plan as documented in the note. Any exceptions or clarifications are listed here: Pt denied any further chest pain at all since admission, felt well. Is motivated to quit drinking EtOH and eventually quit smoking cigarettes. Discussed findings on her studies. Her labs were all normal and there was nor concern for EtOH hepatitis although did discuss fatty liver and hypoechoic lesion and need for further imaging as an outpatient if PCP deems necessary. Most likely her symptoms here GI related either reflux or esophageal spasm. She had no evidence of pancreatitis or gallstones. There was no evidence of GI bleeding or anemia. Cardiac stress testing was normal although was a bit submaximal. Vitals and tele reviewed NAD RRR no mgr CTAB, breathing unlabored Abd +BS soft NT ND Ext no edema, no calf tenderness 51 yo female with HTN, depression/anxiety, EtOH abuse, current smoker, here with left sided chest pain. Noncardiac in nature, r/o for ACS. Negative submax stress ECHO as above. 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 -increase H2 eleno to bid and consider referral to GI as an outpatient -f/u PCP in 1 week -counseled extensively on abstinence from EtOH and smoking Documented By: Jumana Cerda (Jumana Cerda MD)
[2016-06-19] MEDS ORDERED: GABAPENTIN 600MG Q12H DOSE PO SCH (18:00)
[2016-06-21] MEDS ORDERED: GABAPENTIN 600MG X1 DOSE PO SCH (06:00)
[2016-06-21] MEDS ORDERED: ERGOCALCIFEROL 50,000 INTER.UNIT CAP PO SCH (09:00)
== END 2016-06-18 19:25 | disposition home or self-care (01) ==
LOC: ENRESERVTM → ENRESERVDT → C.EDB 11:12 → C.MED 14:33
PROVIDERS: ADMIT Hospitalist; ATTEND Hospitalist
DX: R07.2 Precordial pain (principal); F10.10 Alcohol abuse, uncomplicated; R11.2 Nausea with vomiting, unspecified; I10 Essential (primary) hypertension; F17.200 Nicotine dependence, unspecified, uncomplicated; Z90.89 Acquired absence of other organs; Z90.710 Acquired absence of both cervix and uterus; Z88.0 Allergy status to penicillin; Z88.1 Allergy status to other antibiotic agents; Z88.2 Allergy status to sulfonamides; Z82.49 Family history of ischemic heart disease and other diseases of the circulatory system

== ENCOUNTER 2020-10-13 17:01 | Observation (INO) ==
[2020-10-13] MEDS ORDERED: MoRPHine SULFATE 4 MG/ML 1 ML CARP\\VIAL IV STA (18:36)
[2020-10-13 19:03] LABS: Basophils # (auto) 0.03 K/uL (0-0.2); Basophils % (auto) 0.2 %; Eosinophils # (auto) 0.15 K/uL (0-0.5); Hematocrit (blood only) 37.3 % (37-47); Hemoglobin 13.1 g/dL (12.0-16.0); Immature Granulocytes # (auto) 0.09 K/uL (0.00-0.02); Immature Granulocytes % (auto) 0.6 %; Lymphocytes # (auto) 1.21 K/uL (1.2-3.4); Lymphocytes % (auto) 7.8 %; Mean Corpuscular Hgb Conc 35.1 g/dL (32-36); Mean Corpuscular Volume 99.7 fL (80-100); Mean Platelet Volume 10.1 fL (7.4-10.4); Monocytes # (auto) 1.43 K/uL (0.11-0.59); Monocytes % (auto) 9.2 %; Neutrophils # (auto) 12.67 K/uL (1.4-6.5); Neutrophils % (auto) 81.2 %; Platelet Count 221 K/uL (130-400); RDW Coefficient of Variation 12.4 % (11.5-14.5); RDW Standard Deviation 45.2 fL (36.4-46.3); Red Blood Count 3.74 M/uL (4.2-5.4); White Blood Count 15.58 K/uL (4.8-10.8)
[2020-10-13 19:12] LABS: INR 1.1 (0.9-1.1); Partial Thromboplastin Ratio 1.2; Partial Thromboplastin Time 30.8 Seconds (21.0-31.0); Prothrombin Time 11.1 Seconds (9.0-12.0)
[2020-10-13] MEDS ORDERED: LIDOCAINE/EPINEPHRINE 1% 20 ML VIAL INFIL ONE (19:16)
[2020-10-13 19:35] LABS: Calcium 9.7 mg/dl (8.5-10.1); Creatinine Clr Calc Pharmacy 105.5 ml/min; Est GFR (African American) 114.6 ml/min; Est GFR (Non-African American) 98.9 ml/min; Potassium 3.5 mmol/L (3.5-5.1)
--- NOTE | 2020-10-13 19:56 | History & Physical Report ---
Date of Service October 13, 2020 Assessment & Plan (1) Pilonidal cyst with abscess: Plan: 55-year-old female with large pilonidal abscess extending down towards the rectum. This is felt to improve with attempted drainage and oral antibiotics. The abscess has been incised and drained in the emergency department, the details of which are dictated in a separate procedure note. A extremely large amount of purulent fluid was released. Cultures were taken. We will admit her to the hospital overnight for IV antibiotics and recheck of the wound tomorrow. Admission and Anticipated Discharge Date Admission Date: 10/13/2020 Anticipated date of discharge: 10/14/20 History of Present Illness Chief Complaint: Pilonidal cyst with abscess Primary Care Provider: ANTHONY Garcia 55-year-old woman presents with 1 week history of pilonidal cyst with abscess. She was seen on Friday at the [facility] where a drainage was attempted. She developed fevers and chills, and worsening pain and pressure in the gluteal cleft posterior rectal region. She has not been able to urinate easily or have normal bowel movements. She denies nausea and vomiting. She denies any drainage from the gluteal cleft. She is unable to sit due to the pain. Allergies Allergy/AdvReac Type Severity Reaction Status Date / Time phenylpropanolamine Allergy Mild PALPITATION Verified 10/13/20 19:52 S Penicillins Allergy Unknown UNKNOWN Verified 10/13/20 19:52 Sulfa (Sulfonamide AdvReac Mild DIARRHEA Verified 10/13/20 19:52 Antibiotics) amoxicillin AdvReac Unknown SEVERE Unverified 10/13/20 19:52 DIARRHEA clavulanic acid AdvReac Unknown SEVERE Unverified 10/13/20 19:52 DIARRHEA Decongestabs TBCR Allergy Palpitation Uncoded 10/13/20 19:52 s Home Medications Medication Instructions Recorded Confirmed Type fluticasone propionate 50 1 spray INTRANASAL DAILY 04/08/20 04/08/20 History mcg/actuation nasal spray,suspension hydrochlorothiazide 25 mg tablet 25 mg PO QAM 04/08/20 04/08/20 History sertraline 100 mg tablet 200 mg PO HS 04/08/20 04/08/20 History vitamin B complex 1 tab PO QAM 04/08/20 04/08/20 History cephalexin 500 mg capsule 500 mg PO QID 10/13/20 10/13/20 History cetirizine 10 mg tablet (Zyrtec) 10 mg PO DAILY 10/13/20 10/13/20 History lisinopril 10 mg tablet 15 mg PO DAILY 10/13/20 10/13/20 History metronidazole 500 mg tablet 500 mg PO TID 10/13/20 10/13/20 History Past Med/Surg History Medical History GERD (gastroesophageal reflux disease) Hypertension Surgical History History of appendectomy History of cystoscopy History of wisdom tooth extraction Family History Sister Hypertension Father Hypertension Uncle Hypertension paternal Other Non-Hodgkins lymphoma Denies family history of Prostate cancer Social History Smoking Status: Never smoker Tobacco Type: Cigarettes Age Started Using Tobacco: 18; packs per day: 1; Second Hand Exposure: No; marital status: Current Living Situation: Spouse current occupational status: unemployed Feels Safe at Home: Yes Review of Systems Review of Systems: All systems reviewed & are unremarkable except as noted in HPI & below Physical Exam Constitutional: WD/WN, vitals as above Eyes: PERRL, conjunctivae normal, anicteric sclerae Neck: trachea midline, no thyromegaly Respiratory: normal respiratory effort, lungs clear to auscultation Cardiovascular: RRR, no murmur, no edema Gastrointestinal (Abdomen): Inspection/Auscultation: abdomen normal to inspection Percussion/Palpation: abdomen soft; abdomen nontender Rectal Exam: + rectal tenderness; normal sphincter tone and no rectal fissure Large area of erythema and fluctuance in the gluteal cleft extending down to the posterior rectum; tenderness to palpation; on rectal exam, posterior rectal vault tenderness Skin: no rashes, warm and dry Psychiatric: A+Ox3, euthymic affect Results & Data Results & Data ([facility]) Vital Signs (Past 12 Hours) Vital Signs Temp Pulse Pulse Resp BP BP Pulse Ox 10/13/20 19:02 86 16 113/65 94 10/13/20 17:33 36.7 C 97 H 18 143/85 H 97 Laboratory Results 10/13/20 10/13/20 10/13/20 Range/Units 18:54 18:54 18:54 WBC (4.8-10.8) K/uL RBC (4.2-5.4) M/uL Hgb (12.0-16.0) g/dL Hct (37-47) % MCV (80-100) fL MCH (25-34) pg MCHC (32-36) g/dL RDW Std Deviation (36.4-46.3) fL RDW Coeff of Torrey (11.5-14.5) % Plt Count (130-400) K/uL MPV (7.4-10.4) fL Immature Gran % (Auto) % Neut % (Auto) % Lymph % (Auto) % [place] % (Auto) % Eos % (Auto) % Baso % (Auto) % Neut # (Auto) (1.4-6.5) K/uL Lymph # (Auto) (1.2-3.4) K/uL [place] # (Auto) (0.11-0.59) K/uL Eos # (Auto) (0-0.5) K/uL Baso # (Auto) (0-0.2) K/uL Immature Gran # (Auto) (0.00-0.02) K/uL PT 11.1 (9.0-12.0) Seconds INR 1.1 (0.9-1.1) APTT 30.8 (21.0-31.0) Seconds PTT Ratio 1.2 Sodium 132 L (136-145) mmol/L Potassium 3.5 (3.5-5.1) mmol/L Chloride 100 (98-107) mmol/L Carbon Dioxide 24 (21-32) mmol/L Anion Gap 8.0 (3-11) BUN 7 (7-18) mg/dl Creatinine 0.70 (0.6-1.2) mg/dl Est Cr Clr Drug Dosing 105.5 ml/min Est GFR ( Amer) 114.6 ml/min Est GFR (Non-Af Amer) 98.9 ml/min BUN/Creatinine Ratio 10.0 (10-20) Glucose 109 H (70-99) mg/dl Lactate 1.8 (0.4-2.0) mmol/L Calcium 9.7 (8.5-10.1) mg/dl 10/13/20 Range/Units 18:54 WBC 15.58 H (4.8-10.8) K/uL RBC 3.74 L (4.2-5.4) M/uL Hgb 13.1 (12.0-16.0) g/dL Hct 37.3 (37-47) % MCV 99.7 (80-100) fL MCH 35.0 H (25-34) pg MCHC 35.1 (32-36) g/dL RDW Std Deviation 45.2 (36.4-46.3) fL RDW Coeff of Torrey 12.4 (11.5-14.5) % Plt Count 221 (130-400) K/uL MPV 10.1 (7.4-10.4) fL Immature Gran % (Auto) 0.6 % Neut % (Auto) 81.2 % Lymph % (Auto) 7.8 % Call[place] % (Auto) 9.2 % Eos % (Auto) 1.0 % Baso % (Auto) 0.2 % Neut # (Auto) 12.67 H (1.4-6.5) K/uL Lymph # (Auto) 1.21 (1.2-3.4) K/uL [place] # (Auto) 1.43 H (0.11-0.59) K/uL Eos # (Auto) 0.15 (0-0.5) K/uL Baso # (Auto) 0.03 (0-0.2) K/uL Immature Gran # (Auto) 0.09 H (0.00-0.02) K/uL PT (9.0-12.0) Seconds INR (0.9-1.1) APTT (21.0-31.0) Seconds PTT Ratio Sodium (136-145) mmol/L Potassium (3.5-5.1) mmol/L Chloride (98-107) mmol/L Carbon Dioxide (21-32) mmol/L Anion Gap (3-11) BUN (7-18) mg/dl Creatinine (0.6-1.2) mg/dl Est Cr Clr Drug Dosing ml/min Est GFR ( Amer) ml/min Est GFR (Non-Af Amer) ml/min BUN/Creatinine Ratio (10-20) Glucose (70-99) mg/dl Lactate (0.4-2.0) mmol/L Calcium (8.5-10.1) mg/dl
--- NOTE | 2020-10-13 19:59 | Procedure Note ---
Procedure Note Date of Service October 13, 2020 Note Preoperative diagnosis: Pilonidal abscess Postoperative diagnosis: Pilonidal abscess Procedure: Incision and drainage of pilonidal abscess Findings: Large amount of purulent fluid; cultures sent Surgeon: Moo Andino Procedure: After informed consent was obtained, the patient was placed in the left lateral decubitus position. The area of the gluteal cleft down to the rectum was prepped and draped in the normal sterile fashion. 1% lidocaine with epinephrine was injected into and around the area of the abscess. Incision was made with an 11 blade scalpel down into the abscess cavity using a cruciate incision. A large amount of purulent fluid was returned. Cultures were sent. The abscess cavity was quite large. Packing was placed. A dressing was applied. She tolerated the procedure without complication. She will be admitted to the hospital for observation overnight. Coding
[2020-10-13] MEDS ORDERED: ACETAMINOPHEN 325 MG TAB PO PRN (22:04)
[2020-10-13] MEDS ORDERED: MoRPHine SULFATE 2 MG/ML CARP IV PRN (22:04)
[2020-10-13] MEDS ORDERED: ONDANSETRON INJ 2 MG/ML 2 ML VIAL IV PRN (22:04)
[2020-10-13] MEDS: traMADol HCL 50 MG TABLET PO PRN (22:51)
[2020-10-13] MEDS: ENOXAPARIN INJ 40 MG/0.4 ML SYR SQ SCH (23:29)
[2020-10-13] MEDS: ceFAZolin 2000MG 2,000 MG/15 ML SYR IV SCH (23:30)
[2020-10-13] MEDS: metroNIDAZOLE 500 MG/100 ML BAG IV SCH (23:32)
[2020-10-14] MEDS: SERTRALINE HCL 100 MG TABLET PO SCH ×2 (00:04→21:27)
--- NOTE | 2020-10-14 01:38 | Emergency Department Note ---
History of Present Illness General Chief complaint: Pilonidal Cyst Stated complaint: CYST ON RECTUM-DOC REF Time Seen by Provider: 10/13/20 18:19 History of Present Illness Provider complaint: Rectal pain Onset (ago): day(s) 6 Location: buttocks Radiation: non-radiation Severity: moderate Pain Consistency: + constant Maximum Pain Intensity: 7 Current Pain Intensity: 7 Quality: + aching and + dull Relieved By: + none Exacerbated By: + other (Bowel movements) Associated symptoms: no cough, no fever/chills, no headaches, no nausea/vom iting, no shortness of breath or no weakness 55-year-old female presents emergency department for rectal pain. Patient states that her rectal pain began on Friday. She states she went to her PCP on Friday and drain a pilonidal cyst. She states she went to go have the wound looked that yesterday and they said it looked okay. She states last night it started swelling and hurting more. She states last night she started having subjective fevers. Patient has been on antibiotics. Patient denies any anal sex. Home Medications Medication Instructions Recorded Confirmed Type fluticasone propionate 50 1 spray INTRANASAL DAILY 04/08/20 10/13/20 History mcg/actuation nasal spray,suspension hydrochlorothiazide 25 mg tablet 25 mg PO QAM 04/08/20 10/13/20 History sertraline 100 mg tablet 200 mg PO HS 04/08/20 10/13/20 History vitamin B complex 1 tab PO QAM 04/08/20 10/13/20 History cephalexin 500 mg capsule 500 mg PO QID 10/13/20 10/13/20 History cetirizine 10 mg tablet (Zyrtec) 10 mg PO DAILY 10/13/20 10/13/20 History lisinopril 10 mg tablet 15 mg PO DAILY 10/13/20 10/13/20 History metronidazole 500 mg tablet 500 mg PO TID 10/13/20 10/13/20 History Allergies Allergy/AdvReac Type Severity Reaction Status Date / Time phenylpropanolamine Allergy Mild PALPITATION Verified 10/13/20 19:52 S Penicillins Allergy Unknown UNKNOWN Verified 10/13/20 19:52 Sulfa (Sulfonamide AdvReac Mild DIARRHEA Verified 10/13/20 19:52 Antibiotics) amoxicillin AdvReac Unknown SEVERE Unverified 10/13/20 19:52 DIARRHEA clavulanic acid AdvReac Unknown SEVERE Unverified 10/13/20 19:52 DIARRHEA Decongestabs TBCR Allergy Palpitation Uncoded 10/13/20 19:52 s Past Med/Surg History Medical History GERD (gastroesophageal reflux disease) Hypertension Surgical History History of appendectomy History of cystoscopy History of wisdom tooth extraction Family History Sister Hypertension Father Hypertension Uncle Hypertension paternal Other Non-Hodgkins lymphoma Denies family history of Prostate cancer Social History Smoking Status: Current every day smoker Tobacco Type: Cigarettes Age Started Using Tobacco: 18; packs per day: 1; Second Hand Exposure: No; Do You Dip or Chew Tobacco: No; Tobacco Cessation Education Requested by Patient: No Hx Alcohol Use: Yes Alcohol type: wine Hx Substance Use: No Preferred Language: Romansh Communication Ability: Effective Sand 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 Required: No Beliefs That Will Affect Care: None marital status: Current Living Situation: Spouse current occupational status: unemployed Feels Safe at Home: Yes Safety Concerns: Feels Safe At This Time Assistive Devices: Contacts and Glasses Review of Systems A total of 10 systems reviewed and were otherwise negative Physical Exam Vital Signs Vital Signs - 24 hr 10/13/20 17:33 10/13/20 19:02 Temperature 36.7 C Temperature Source Temporal Artery Scan Pulse Rate 97 H Pulse Rate [Radial] 86 Respiratory Rate 18 16 Respiratory Effort / Characteristics Non-Labored Respiratory Depth Normal Blood Pressure 143/85 H Blood Pressure [Left Arm] 113/65 Blood Pressure Mean 104 Blood Pressure Mean [Left Arm] 81 Pulse Oximetry 97 94 Oxygen Delivery Method Room Air Room Air Sepsis Recent Fever Within 48 Hours No Sepsis New/Unexplained Change in Mental Status No Sepsis Action Taken by Nursing No Action Required Physical Exam GENERAL: She is oriented to person, place, and time. She appears well-developed and well-nourished. She does not appear distressed. HENT: Exam performed. -Head: Normocephalic and atraumatic. -Right Ear: External ear normal. No mastoid tenderness. -Left Ear: External ear normal. No mastoid tenderness. -Mouth/Throat: The oropharynx is clear and moist. No trismus in the jaw. No dental abscesses or uvula swelling. No oropharyngeal exudate or tonsillar abscesses. EYES: Conjunctivae and EOM are normal. Pupils are equal, round, and reactive to light. Right eye exhibits no discharge. Left eye exhibits no discharge. No scleral icterus. NECK: Normal range of motion. Neck supple. No JVD present. No spinous process tenderness present. No carotid bruit present. No rigidity. No tracheal deviation and normal range of motion present. No Brudzinski's sign and no Kernig's sign noted. CV: Normal rate, regular rhythm, normal heart sounds and intact distal pulses. There is no peripheral edema. Palpable radial pulses bue. PULM/CHEST: Effort normal and breath sounds normal. No respiratory distress. No stridor. She has no wheezes. She has no rales. -Chest Wall: She exhibits no tenderness. ABD: The abdomen is soft. Bowel sounds are normal. She has no distension. No mass is present. There is no tenderness. There is no rebound, no guarding, no Lozano's sign and no tenderness at McBurney's point. Rovsig negative Rectal: Exam performed with female nursing lurer at bedside. large erythematous abscess in the gluteal cleft extending downwards. MUSC/SKEL: Normal range of motion. There is no peripheral edema, tenderness or deformity. LYMPH: No cervical adenopathy. NEURO: She is alert and oriented to person, place, and time. She has normal strength. No cranial nerve deficit or sensory deficit. Coordination and gait normal. GCS eye subscore is 4. GCS verbal subscore is 5. GCS motor subscore is 6. Cerebellar tests wnl. SKIN: Skin is warm and dry. She is not diaphoretic. PSYCH: She has a normal mood and affect. Behavior is normal. Judgment and thought content normal. Course Course 1818: The patient was evaluated in room A12. A complete history and physical exam was performed Cardiac monitoring: An order was placed for continuous cardiac monitoring. The monitor shows a rate of 90 with sinus rhythm 1915: Dr. Andino general surgery at bedside and evaluating the patient. 1952: Labs show leukocytosis. Dr. Andino general surgery performed incision and drainage at bedside. CT canceled. Dr. Andino states he will admit the patient and give antibiotics and watch her overnight. Administered Medications Enoxaparin Sodium (Enoxaparin Inj 40 Mg/0.4 Ml Syr) 40 mg SQ Q12H ELLIOTT Stop: 11/12/20 22:29 Last Admin: 10/13/20 23:29 Dose: Not Given Documented by: [id number] Cefazolin Sodium (Ancef 2000mg) 2,000 mg in 15 mls @ 3.75 mls/min IV Q8 ELLIOTT; Protocol Stop: 10/20/20 22:29 Last Admin: 10/13/20 23:30 Dose: 3.75 mls/min Documented by: [id number] Metronidazole (Flagyl) 500 mg in 100 mls @ 100 mls/hr IV Q8 ELLIOTT; Protocol Stop: 10/20/20 22:29 Last Infusion: 10/14/20 00:52 Dose: 0 mls/hr Documented by: [id number] Admin: 10/13/20 23:32 Dose: 100 mls/hr Documented by: [id number] Sertraline HCl (Sertraline Hcl 100 Mg Tablet) 200 mg PO HS ELLIOTT Stop: 11/12/20 22:29 Last Admin: 10/14/20 00:04 Dose: 100 mg Documented by: [id number] Tramadol HCl (Tramadol Hcl 50 Mg Tablet) 100 mg PO Q4H PRN PRN Reason: SEVERE Pain (7,8,9,10) Stop: 11/12/20 22:03 Last Admin: 10/13/20 22:51 Dose: 100 mg Documented by: [id number] Discontinued Medications Lidocaine/Epinephrine (Lidocaine/Epinephrine 1% 20 Ml Vial) 20 ml INFIL NOW ONE Stop: 10/13/20 19:17 Last Admin: 10/13/20 19:34 Dose: 20 ml Documented by: [id number] Morphine Sulfate (Morphine Sulfate 4 Mg/Ml 1 Ml Carp\Vial) 4 mg IV NOW STA Stop: 10/13/20 18:37 Last Admin: 10/13/20 18:59 Dose: 4 mg Documented by: [id number] Medical Decision Making Laboratory Data Result diagrams: 10/13/20 18:54 10/13/20 18:54 Lab Results 10/13/20 10/13/20 10/13/20 Range/Units 18:54 18:54 18:54 WBC 15.58 H (4.8-10.8) K/uL RBC 3.74 L (4.2-5.4) M/uL Hgb 13.1 (12.0-16.0) g/dL Hct 37.3 (37-47) % MCV 99.7 (80-100) fL MCH 35.0 H (25-34) pg MCHC 35.1 (32-36) g/dL RDW Std Deviation 45.2 (36.4-46.3) fL RDW Coeff of Torrey 12.4 (11.5-14.5) % Plt Count 221 (130-400) K/uL MPV 10.1 (7.4-10.4) fL Immature Gran % (Auto) 0.6 % Neut % (Auto) 81.2 % Lymph % (Auto) 7.8 % [place] % (Auto) 9.2 % Eos % (Auto) 1.0 % Baso % (Auto) 0.2 % Neut # (Auto) 12.67 H (1.4-6.5) K/uL Lymph # (Auto) 1.21 (1.2-3.4) K/uL [place] # (Auto) 1.43 H (0.11-0.59) K/uL Eos # (Auto) 0.15 (0-0.5) K/uL Baso # (Auto) 0.03 (0-0.2) K/uL Immature Gran # (Auto) 0.09 H (0.00-0.02) K/uL PT 11.1 (9.0-12.0) Seconds INR 1.1 (0.9-1.1) APTT 30.8 (21.0-31.0) Seconds PTT Ratio 1.2 Sodium 132 L (136-145) mmol/L Potassium 3.5 (3.5-5.1) mmol/L Chloride 100 (98-107) mmol/L Carbon Dioxide 24 (21-32) mmol/L Anion Gap 8.0 (3-11) BUN 7 (7-18) mg/dl Creatinine 0.70 (0.6-1.2) mg/dl Est Cr Clr Drug Dosing 105.5 ml/min Est GFR ( Amer) 114.6 ml/min Est GFR (Non-Af Amer) 98.9 ml/min BUN/Creatinine Ratio 10.0 (10-20) Glucose 109 H (70-99) mg/dl Lactate (0.4-2.0) mmol/L Calcium 9.7 (8.5-10.1) mg/dl 10/13/20 Range/Units 18:54 WBC (4.8-10.8) K/uL RBC (4.2-5.4) M/uL Hgb (12.0-16.0) g/dL Hct (37-47) % MCV (80-100) fL MCH (25-34) pg MCHC (32-36) g/dL RDW Std Deviation (36.4-46.3) fL RDW Coeff of Torrey (11.5-14.5) % Plt Count (130-400) K/uL MPV (7.4-10.4) fL Immature Gran % (Auto) % Neut % (Auto) % Lymph % (Auto) % [place] % (Auto) % Eos % (Auto) % Baso % (Auto) % Neut # (Auto) (1.4-6.5) K/uL Lymph # (Auto) (1.2-3.4) K/uL [place] # (Auto) (0.11-0.59) K/uL Eos # (Auto) (0-0.5) K/uL Baso # (Auto) (0-0.2) K/uL Immature Gran # (Auto) (0.00-0.02) K/uL PT (9.0-12.0) Seconds INR (0.9-1.1) APTT (21.0-31.0) Seconds PTT Ratio Sodium (136-145) mmol/L Potassium (3.5-5.1) mmol/L Chloride (98-107) mmol/L Carbon Dioxide (21-32) mmol/L Anion Gap (3-11) BUN (7-18) mg/dl Creatinine (0.6-1.2) mg/dl Est Cr Clr Drug Dosing ml/min Est GFR ( Amer) ml/min Est GFR (Non-Af Amer) ml/min BUN/Creatinine Ratio (10-20) Glucose (70-99) mg/dl Lactate 1.8 (0.4-2.0) mmol/L Calcium (8.5-10.1) mg/dl [facility] Narrative 1819: The patient was evaluated in room A12. A complete history and physical exam was performed Cardiac monitoring: An order was placed for continuous cardiac monitoring. The monitor shows a rate of 90 with sinus rhythm 1915: Dr. Andino general surgery at bedside and evaluating the patient. 1952: Labs show leukocytosis. Dr. Andino general surgery performed incision and drainage at bedside. CT canceled. Dr. Andino states he will admit the patient and give antibiotics and watch her overnight. Impression & Plan Pilonidal cyst with abscess Discharge Plan Visit Data Chief Complaint: Pilonidal Cyst Stated Complaint: CYST ON RECTUM-DOC REF Discharge Problem: Pilonidal cyst with abscess Patient Disposition: Admitted As Inpatient Discharge Instructions Interventions: ED Discharge Assessment Last Done: 10/13/20 21:50
[2020-10-14] MEDS: metroNIDAZOLE 500 MG/100 ML BAG IV SCH ×3 (06:27→21:46)
[2020-10-14] MEDS: ceFAZolin 2000MG 2,000 MG/15 ML SYR IV SCH ×3 (06:27→21:46)
[2020-10-14] MEDS: hydroCHLOROthiazide 25 MG TAB PO SCH (08:35)
[2020-10-14] MEDS: lisinopril 5 MG TAB PO SCH (08:35)
[2020-10-14] MEDS: traMADol HCL 50 MG TABLET PO PRN ×2 (09:12→21:27)
[2020-10-14 09:17] LABS: Basophils # (auto) 0.01 K/uL (0-0.2); Basophils % (auto) 0.1 %; Hematocrit (blood only) 36.3 % (37-47); Hemoglobin 12.7 g/dL (12.0-16.0); Immature Granulocytes # (auto) 0.06 K/uL (0.00-0.02); Immature Granulocytes % (auto) 0.6 %; Lymphocytes # (auto) 1.35 K/uL (1.2-3.4); Lymphocytes % (auto) 13.2 %; Mean Corpuscular Hemoglobin 34.6 pg (25-34); Mean Corpuscular Volume 98.9 fL (80-100); Mean Platelet Volume 10.2 fL (7.4-10.4); Monocytes # (auto) 0.52 K/uL (0.11-0.59); Monocytes % (auto) 5.1 %; Platelet Count 236 K/uL (130-400); RDW Coefficient of Variation 12.3 % (11.5-14.5); RDW Standard Deviation 44.5 fL (36.4-46.3); Red Blood Count 3.67 M/uL (4.2-5.4); White Blood Count 10.24 K/uL (4.8-10.8)
--- NOTE | 2020-10-14 10:52 | Surgery Progress Note ---
Date of Service October 14, 2020 Assessment & Plan (1) Pilonidal cyst with abscess: Plan: She is feeling significantly improved today. White blood cell count down to 10. Still a large cavity with continued purulent drainage. The cavity was repacked after being irrigated. I believe she still requires further IV antibiotic therapy given the level of induration and erythema as well as the large cavity. We will plan for 1 more overnight with probable discharge tomorrow. The dressing can be changed and the wound packed as necessary. Admission and Anticipated Discharge Date Admission Date: October 13, 2020 Subjective Postop day 1 from incision and drainage of a large pilonidal abscess in the ED. Overnight her pain has been controlled. She is overall significantly improved. She denies fevers or chills. She is having loose bowel movements. She has had continued drainage from the I&D site, and the nurses have had to repack a few times. Review of Systems Review of Systems: All systems reviewed & are unremarkable except as noted in HPI & below Physical Exam Constitutional: WD/WN, vitals as above Neck: trachea midline, no thyromegaly Gastrointestinal (Abdomen): Inspection/Auscultation: abdomen normal to inspection Percussion/Palpation: abdomen soft; abdomen nontender, no guarding and abdomen not rigid Musculoskeletal: Extremities: no cyanosis and no clubbing Skin: no rashes, warm and dry Gluteal cleft: The dressing was taken down and the packing was removed. Still significant amount of purulent drainage from the abscess cavity. The cavity was irrigated with saline and repacked. Erythema and induration bilateral gluteal cleft, decreased from prior Psychiatric: A+Ox3, euthymic affect Results & Data ([facility]) Vital Signs (Past 12 Hours) Vital Signs Temp Pulse Resp BP Pulse Ox 10/14/20 06:59 37 C 70 16 113/74 96 Laboratory Results 10/14/20 10/13/20 10/13/20 Range/Units 08:49 20:06 20:06 WBC 10.24 (4.8-10.8) K/uL RBC 3.67 L (4.2-5.4) M/uL Hgb 12.7 (12.0-16.0) g/dL Hct 36.3 L (37-47) % MCV 98.9 (80-100) fL MCH 34.6 H (25-34) pg MCHC 35.0 (32-36) g/dL RDW Std Deviation 44.5 (36.4-46.3) fL RDW Coeff of Torrey 12.3 (11.5-14.5) % Plt Count 236 (130-400) K/uL MPV 10.2 (7.4-10.4) fL Immature Gran % (Auto) 0.6 % Neut % (Auto) 79.0 % Lymph % (Auto) 13.2 % [place] % (Auto) 5.1 % Eos % (Auto) 2.0 % Baso % (Auto) 0.1 % Neut # (Auto) 8.10 H (1.4-6.5) K/uL Lymph # (Auto) 1.35 (1.2-3.4) K/uL [place] # (Auto) 0.52 (0.11-0.59) K/uL Eos # (Auto) 0.20 (0-0.5) K/uL Baso # (Auto) 0.01 (0-0.2) K/uL Immature Gran # (Auto) 0.06 H (0.00-0.02) K/uL PT (9.0-12.0) Seconds INR (0.9-1.1) APTT (21.0-31.0) Seconds PTT Ratio Sodium (136-145) mmol/L Potassium (3.5-5.1) mmol/L Chloride (98-107) mmol/L Carbon Dioxide (21-32) mmol/L Anion Gap (3-11) BUN (7-18) mg/dl Creatinine (0.6-1.2) mg/dl Est Cr Clr Drug Dosing ml/min Est GFR ( Amer) ml/min Est GFR (Non-Af Amer) ml/min BUN/Creatinine Ratio (10-20) Glucose (70-99) mg/dl Lactate (0.4-2.0) mmol/L Calcium (8.5-10.1) mg/dl COVID-19 Eval Order Covid19 at [facility] SARS-CoV-2 (PCR) NEGATIVE (Negative) 10/13/20 10/13/20 10/13/20 Range/Units 18:54 18:54 18:54 WBC (4.8-10.8) K/uL RBC (4.2-5.4) M/uL Hgb (12.0-16.0) g/dL Hct (37-47) % MCV (80-100) fL MCH (25-34) pg MCHC (32-36) g/dL RDW Std Deviation (36.4-46.3) fL RDW Coeff of Torrey (11.5-14.5) % Plt Count (130-400) K/uL MPV (7.4-10.4) fL Immature Gran % (Auto) % Neut % (Auto) % Lymph % (Auto) % [place] % (Auto) % Eos % (Auto) % Baso % (Auto) % Neut # (Auto) (1.4-6.5) K/uL Lymph # (Auto) (1.2-3.4) K/uL [place] # (Auto) (0.11-0.59) K/uL Eos # (Auto) (0-0.5) K/uL Baso # (Auto) (0-0.2) K/uL Immature Gran # (Auto) (0.00-0.02) K/uL PT 11.1 (9.0-12.0) Seconds INR 1.1 (0.9-1.1) APTT 30.8 (21.0-31.0) Seconds PTT Ratio 1.2 Sodium 132 L (136-145) mmol/L Potassium 3.5 (3.5-5.1) mmol/L Chloride 100 (98-107) mmol/L Carbon Dioxide 24 (21-32) mmol/L Anion Gap 8.0 (3-11) BUN 7 (7-18) mg/dl Creatinine 0.70 (0.6-1.2) mg/dl Est Cr Clr Drug Dosing 105.5 ml/min Est GFR ( Amer) 114.6 ml/min Est GFR (Non-Af Amer) 98.9 ml/min BUN/Creatinine Ratio 10.0 (10-20) Glucose 109 H (70-99) mg/dl Lactate 1.8 (0.4-2.0) mmol/L Calcium 9.7 (8.5-10.1) mg/dl COVID-19 Eval Order SARS-CoV-2 (PCR) (Negative) 10/13/20 Range/Units 18:54 WBC 15.58 H (4.8-10.8) K/uL RBC 3.74 L (4.2-5.4) M/uL Hgb 13.1 (12.0-16.0) g/dL Hct 37.3 (37-47) % MCV 99.7 (80-100) fL MCH 35.0 H (25-34) pg MCHC 35.1 (32-36) g/dL RDW Std Deviation 45.2 (36.4-46.3) fL RDW Coeff of Torrey 12.4 (11.5-14.5) % Plt Count 221 (130-400) K/uL MPV 10.1 (7.4-10.4) fL Immature Gran % (Auto) 0.6 % Neut % (Auto) 81.2 % Lymph % (Auto) 7.8 % [place] % (Auto) 9.2 % Eos % (Auto) 1.0 % Baso % (Auto) 0.2 % Neut # (Auto) 12.67 H (1.4-6.5) K/uL Lymph # (Auto) 1.21 (1.2-3.4) K/uL [place] # (Auto) 1.43 H (0.11-0.59) K/uL Eos # (Auto) 0.15 (0-0.5) K/uL Baso # (Auto) 0.03 (0-0.2) K/uL Immature Gran # (Auto) 0.09 H (0.00-0.02) K/uL PT (9.0-12.0) Seconds INR (0.9-1.1) APTT (21.0-31.0) Seconds PTT Ratio Sodium (136-145) mmol/L Potassium (3.5-5.1) mmol/L Chloride (98-107) mmol/L Carbon Dioxide (21-32) mmol/L Anion Gap (3-11) BUN (7-18) mg/dl Creatinine (0.6-1.2) mg/dl Est Cr Clr Drug Dosing ml/min Est GFR ( Amer) ml/min Est GFR (Non-Af Amer) ml/min BUN/Creatinine Ratio (10-20) Glucose (70-99) mg/dl Lactate (0.4-2.0) mmol/L Calcium (8.5-10.1) mg/dl COVID-19 Eval Order SARS-CoV-2 (PCR) (Negative)
[2020-10-14] MEDS: KETOROLAC 30 MG/ML VIAL IV PRN (11:04)
[2020-10-14] MEDS: ENOXAPARIN INJ 40 MG/0.4 ML SYR SQ SCH ×2 (11:04→21:45)
[2020-10-14 17:25] LABS: Cdiff Antigen Positive; Cdiff Toxin A+B Negative Cdiff Toxin (Negative)
[2020-10-15] MEDS: KETOROLAC 30 MG/ML VIAL IV PRN ×2 (06:22→11:36)
[2020-10-15] MEDS: ceFAZolin 2000MG 2,000 MG/15 ML SYR IV SCH (06:23)
[2020-10-15] MEDS: metroNIDAZOLE 500 MG/100 ML BAG IV SCH (06:23)
[2020-10-15 07:25] VITALS: TEMP 98.2; O2SAT 98
[2020-10-15] MEDS: lisinopril 5 MG TAB PO SCH (08:12)
[2020-10-15] MEDS: hydroCHLOROthiazide 25 MG TAB PO SCH (08:13)
--- NOTE | 2020-10-15 10:36 | Surgery Progress Note ---
Date of Service October 15, 2020 Assessment & Plan (1) Pilonidal cyst with abscess: Plan: Postop day 2 status post I&D of very large pilonidal abscess extending down towards the rectum. The erythema and induration is significantly improved today. She is feeling much better. She still has a significant amount of drainage. We will switch her to oral antibiotics and discharge her to home. She will have her pack the wound twice daily. We will have her follow- up in clinic on Friday at [facility]. She will call with any new or concerning symptoms. Admission and Anticipated Discharge Date Admission Date: October 13, 2020 Subjective Postop day 2 from incision and drainage of a large pilonidal abscess in the ED. Overnight her pain has been controlled. She is overall significantly improved. She denies fevers or chills. She is having loose bowel movements. She has had continued drainage from the I&D site. Physical Exam Constitutional: WD/WN, vitals as above Gastrointestinal (Abdomen): Inspection/Auscultation: abdomen normal to inspection; abdomen not distended Percussion/Palpation: abdomen soft; abdomen nontender significant improvement in erythema/induration in gluteal cleft; wound packing removed, still significant drainage; repacked Skin: no rashes, warm and dry Psychiatric: A+Ox3, euthymic affect Results & Data ([facility]) Vital Signs (Past 12 Hours) Vital Signs Temp Pulse Resp BP Pulse Ox 10/15/20 07:23 36.8 C 62 16 116/65 98
--- NOTE | 2020-10-15 10:43 | Discharge Summary ---
Date of Service October 15, 2020 Admission HPI Per Admitting Provider 55-year-old woman presents with 1 week history of pilonidal cyst with abscess. She was seen on Friday at the [facility] where a drainage was attempted. She developed fevers and chills, and worsening pain and pressure in the gluteal cleft posterior rectal region. She has not been able to urinate easily or have normal bowel movements. She denies nausea and vomiting. She denies any drainage from the gluteal cleft. She is unable to sit due to the pain. Principal Diagnosis Pilonidal cyst with abscess Discharge Exam Constitutional WD/WN, vitals as above Eyes PERRL, conjunctivae normal, anicteric sclerae Neck trachea midline, no thyromegaly Respiratory normal respiratory effort, lungs clear to auscultation Cardiovascular RRR, no murmur, no edema Gastrointestinal (Abdomen) Inspection/Auscultation: abdomen normal to inspection; abdomen not distended Percussion/Palpation: abdomen soft; abdomen nontender, no guarding and abdomen not rigid Rectal Exam: + rectal tenderness; normal sphincter tone and no rectal fissure Musculoskeletal Extremities: no cyanosis and no clubbing Skin no rashes, warm and dry Psychiatric A+Ox3, euthymic affect Discharge Data Allergies Allergy/AdvReac Type Severity Reaction Status Date / Time phenylpropanolamine Allergy Mild PALPITATION Verified 10/13/20 19:52 S Penicillins Allergy Unknown UNKNOWN Verified 10/13/20 19:52 Sulfa (Sulfonamide AdvReac Mild DIARRHEA Verified 10/13/20 19:52 Antibiotics) amoxicillin AdvReac Unknown SEVERE Unverified 10/13/20 19:52 DIARRHEA clavulanic acid AdvReac Unknown SEVERE Unverified 10/13/20 19:52 DIARRHEA Decongestabs TBCR Allergy Palpitation Uncoded 10/13/20 19:52 s Consultations 10/13/20 19:53 ED Decision to Admit Stat Procedures Performed Incision and drainage of pilonidal abscess Hospital Course (1) Pilonidal cyst with abscess: Patient was seen in the emergency department. She had developed a very large pilonidal abscess extending down towards her rectum. This was incised and drained in the emergency department, the details of which are dictated in a separate note. She was then placed in the hospital for IV antibiotic therapy for the severe infection. By hospital day 3, the erythema was significantly reduced, she still had some drainage, she was tolerating a diet, she was tolerating her pain, and she had no fevers. She was discharged to home with instructions to pack the wound twice daily, and to return to clinic in 3 days for follow-up. Total Time Total Time Spent Total Time Spent (In Minutes): 30 minutes Discharge Plan Discharge Items Patient Disposition: Home - Self-Care Reason For Visit: PILONIDAL ABSCESS Discharge Diagnosis: Pilonidal cyst with abscess Activity: Resume your previous activity Lifting: No more than 25 pounds Bathing Comment: Sits baths once daily; you may shower without restriction Sexual Activity: Wait until after follow-up appointment Exercise/Sports: Wait until after follow-up appointment Driving/Machine Use: Resume 3 days after discharge Non-emergency contact: Surgeon Call non-emergency contact if: you have any medication questions, your symptoms worsen, your pain is not controlled, your pain is concerning for you, your temperature is above 101.5, your wound has increased redness, your wound has increased drainage and your wound pain has increased Follow-up/Referrals: Vandana Cedeño CRNP [Primary Care Provider] - Diet: Regular Addtl Attending Provider Instructions: ACTIVITY RECOMMENDATIONS: * No heavy lifting for 1 week. MEDICATIONS: Resume previous medications unless instructed otherwise by your surgeon. * Percocet 5/325 mg 1 every 4 hours, as needed for pain * Colace 100 mg 2 times per day * Extra Strength Tylenol 500 - 1000 mg every 4 hours, as needed for pain * Ibuprofen 600 mg every 6 hours, as needed for pain SPECIAL CARE INSTRUCTIONS: * Remove dressings and start sitz baths in A.M. unless you have a bowel movement tonight, then remove dressings and start sitz baths at that time. * Shower or sitz bath once per day and after each bowel movement. * Call the surgeon's office with any questions or concerns - (ex. temperature higher than 101 degrees F, excessive bleeding or pain). FOLLOW UP VISIT: If not already scheduled, please call the office to schedule a two week follow- up appointment. Office number . Pending Studies at Discharge: No Stand-Alone Forms: [employer], Smoking Cessation Medications and DC Order Prescriptions: New amoxicillin-pot clavulanate [Augmentin] 875-125 mg tablet 1 tab PO Q12H Qty: 14 RF: 0 oxycodone-acetaminophen [Percocet] 5-325 mg tablet 1 tab PO Q6H Qty: 10 RF: 0 metronidazole 500 mg tablet 500 mg PO BID 7 Days Qty: 14 RF: 0 Continued sertraline 100 mg tablet 200 mg PO HS RF: 0 vitamin B complex Tablet 1 tab PO QAM RF: 0 hydrochlorothiazide 25 mg tablet 25 mg PO QAM RF: 0 fluticasone propionate 50 mcg/actuation Ambia,Suspension 1 spray INTRANASAL DAILY RF: 0 cetirizine [Zyrtec] 10 mg Tablet 10 mg PO DAILY RF: 0 metronidazole 500 mg tablet 500 mg PO TID RF: 0 lisinopril 10 mg Tablet 15 mg PO DAILY RF: 0 Discontinued cephalexin 500 mg capsule 500 mg PO QID RF: 0 Discharge Orders: Discharge Order (Routine); Ordered 10/15/20 Ordered By: Moo Andino Admission Data Admit Date/Time: 10/13/20 20:04 Attending Provider: Moo Andino Admit Provider: Moo Andino Primary Care Provider: Vandana Cedeño Other Providers: Moo Andino
[2020-10-15 11:18] VITALS: BP 98/62; PULSE 90
[2020-10-15] MEDS: ENOXAPARIN INJ 40 MG/0.4 ML SYR SQ SCH (11:27)
== END 2020-10-15 12:27 | disposition home or self-care (01) ==
LOC: ED 17:01 → 3E 17:01